=== PATIENT | male | born 1960 | race Caucasian/White ===

== ENCOUNTER 2017-09-01 09:52 | Emergency (ER) | payer BC ==
[2017-09-01 10:02] VITALS: RESP 18
[2017-09-01 10:04] VITALS: TEMP 97.5
[2017-09-01] MEDS ORDERED: CEFTRIAXONE 1 GM PDS ONE (10:59)
[2017-09-01 12:26] VITALS: BP 196/100; PULSE 69; O2SAT 97
== END 2017-09-01 11:21 | disposition short-term general hospital (02) ==
LOC: ED 09:52
DX: T20.19XA Burn of first degree of multiple sites of head, face, and neck, initial encounter (principal); T20.29XA Burn of second degree of multiple sites of head, face, and neck, initial encounter; T79.9XXA Unspecified early complication of trauma, initial encounter; X08.8XXA Exposure to other specified smoke, fire and flames, initial encounter
CPT/HCPCS: 99283; J0696; A6402